=== PATIENT | male | born 1980 | race Two or more races ===

== ENCOUNTER 2017-11-04 16:20 | Emergency (ER) | payer SELFPAY ==
[~2017-11-04] VITALS: Ht 180.3 cm; Wt 124.9 kg
[2017-11-04 16:43] VITALS: BP 134/85
== END 2017-11-04 18:04 | disposition left against medical advice (07) ==
LOC: ER 16:20
DX: R11.2 Nausea with vomiting, unspecified (principal); R19.7 Diarrhea, unspecified; M79.1 Myalgia; Z53.21 Procedure and treatment not carried out due to patient leaving prior to being seen by health care provider

== ENCOUNTER 2019-06-18 12:53 | Inpatient (IN) | payer MEDICAID ==
[~2019-06-18] VITALS: Ht 175.3 cm; Wt 124.3 kg
[2019-06-18 13:55] LABS: Basophils # (auto) 0.1 uL; Basophils % (auto) 0.7 % (0.0-2.0); Eosinophils # (auto) 0.3 uL; Eosinophils % (auto) 3.5 % (0.0-7.0); Lymphocytes # (auto) 2.6 uL; Lymphocytes % (auto) 30.8 % (10.0-50.0); Mean Corpuscular Hemoglobin 31.6 pg (28.0-32.0); Mean Corpuscular Volume 92.8 fL (80.0-100.0); Monocytes # (auto) 1.3 uL; Neutrophils # (auto) 4.3 uL; Platelet Count (auto) 211 10^3/uL (140-450); Red Blood Cells 5.06 10^6/uL (4.5-5.90); Red Cell Distribution Width 12.9 % (11.8-14.3); White Blood Cell 8.5 10^3/uL (4.4-10.8)
[2019-06-18 14:17] LABS: Albumin 3.5 g/dL (3.4-5.0); Anion Gap 7 (5-15); Blood Urea Nitrogen 7 mg/dL (7-18); Calcium 8.7 mg/dL (8.5-10.1); Carbon Dioxide 28 mmol/L (21-32); Chloride 102 mmol/L (98-107); Glucose 103 mg/dL (74-106); Sodium 137 mmol/L (136-145)
[2019-06-18 14:22] LABS: Alanine Aminotransferase 37 U/L (16-61); Alkaline Phosphatase 73 U/L (45-117); Aspartate Aminotransferase 21 U/L (15-37); BUN/Creatinine Ratio 7.6; Bilirubin, Total 0.9 mg/dL (0.2-1.0); GFR African American 118 mL/min; GFR Non-African American 97 mL/min
[2019-06-18] MEDS ORDERED: ASPirin 81 mg TAB PO ONE (16:00)
[2019-06-18] MEDS ORDERED: NITROGLYCERIN 0.4 MG SL TAB SL ONE (17:15)
[2019-06-18] MEDS ORDERED: TEMAZEPAM 15 MG CAP PO PRN (21:15)
[2019-06-18] MEDS ORDERED: ONDANSETRON HCL 4 MG/2 ML VIAL IV PRN (21:15)
[2019-06-18] MEDS ORDERED: cloNIDine HCL 0.1 MG TAB PO PRN (21:15)
[2019-06-18] MEDS ORDERED: ACETAMINOPHEN 325 MG TAB PO PRN (21:15)
[2019-06-18 21:27] LABS: Cholesterol 155 mg/dL (< 200); Triglycerides 155 mg/dL (< 150)
[2019-06-18 21:29] LABS: HDL Cholesterol 38 mg/dL (40-59); LDL Cholesterol 103 mg/dL (< 100)
[2019-06-18] MEDS ORDERED: MORPHINE SULF INJ 2 MG/ML SYRINGE 1ML IV PRN (22:00)
[2019-06-18] MEDS ORDERED: NITROGLYCERIN 0.4 MG SL TAB SL PRN (22:00)
[2019-06-18] MEDS: FAMOTIDINE 20 MG TAB PO SCH (22:03)
[2019-06-18] MEDS: ATORVASTATIN 20 MG TAB PO SCH (22:03)
--- NOTE | 2019-06-19 00:10 | NUR ---
Telemetry admit from [facility] admitted to Telemetry unit. Patient oriented to Camille Alanis, RN primary RN, unit, room, bed, and unit policies regarding patient care and visiting hours. Patient now on continuous telemetry monitoring, tele box #[id number] and telemetry reading on arrival to unit is NSR. Patient placed on bedside oxygen, weighed by bedscale and encouraged to call if they need something. All questions and concerns addressed, patient verbalized understanding. Note: patient a/ox4. room air, even and unlabored respirations, no s/s of distress. IV intact and patent. Denies CP. Ambulatory with steady gait. No s/s of distress. Will continue care.
[2019-06-19 03:12] VITALS: BP 124/78
[2019-06-19 05:26] VITALS: BP 131/85
[2019-06-19 06:12] LABS: Calcium 8.3 mg/dL (8.5-10.1); Potassium 3.9 mmol/L (3.5-5.1)
--- NOTE | 2019-06-19 06:24 | NUR ---
Home Medications patient does not remember home medications, reports family will bring in list.
--- NOTE | 2019-06-19 06:59 | NUR ---
Closing Note patient resting in bed with even and unlabored respirations, no s/s of distress. Endorsed care to day shift RN.
[2019-06-19 09:00] VITALS: BP 124/74
[2019-06-19] MEDS: ASPirin 81 mg TAB PO SCH (09:05)
[2019-06-19] MEDS: FAMOTIDINE 20 MG TAB PO SCH ×2 (09:05→22:25)
[2019-06-19] MEDS: METOPROLOL TARTRATE 25 MG TAB PO SCH ×2 (09:05→22:25)
--- NOTE | 2019-06-19 12:45 | NUR ---
pt seen by Dr. Carrizales received order for cardiolite stress test.
[2019-06-19 17:00] VITALS: BP 151/79
--- NOTE | 2019-06-19 19:45 | NUR ---
open note assumed care of pt. upon entering room pt awake alert and oriented x4. pt family at bedside. pt on room air no distress noted or expressed. pt denies any pain. pt updated on plan of care, no questions at this time. pt aware of stress test in the AM and will be NPO after midnight. pt bed locked, low and 2x rails up. call light in reach, will round q1hr and prn.
[2019-06-19 22:00] VITALS: BP 122/74
[2019-06-19] MEDS: ATORVASTATIN 20 MG TAB PO SCH (22:25)
[2019-06-20] VITALS (7 sets, daily range): BP systolic 111–123; BP diastolic 68–79
[2019-06-20 07:02] LABS: Basophils # (auto) 0.1 uL; Basophils % (auto) 0.6 % (0.0-2.0); Eosinophils # (auto) 0.5 uL; Eosinophils % (auto) 5.2 % (0.0-7.0); Hematocrit 45.2 % (41.0-53.0); Hemoglobin 15.6 g/dL (13.5-17.5); Lymphocytes # (auto) 3.4 uL; Mean Corpuscular Hemoglobin 32.3 pg (28.0-32.0); Mean Corpuscular Hgb Conc. 34.5 g/dL (32.0-36.0); Mean Corpuscular Volume 93.5 fL (80.0-100.0); Monocytes # (auto) 0.9 uL; Monocytes % (auto) 10.1 % (0.0-12.0); Neutrophils # (auto) 4.2 uL; Neutrophils % (auto) 46.1 % (37.0-80.0); Nucleated Red Blood Cells % 0.1 %; Platelet Count (auto) 210 10^3/uL (140-450); Red Blood Cells 4.83 10^6/uL (4.5-5.90); Red Cell Distribution Width 12.6 % (11.8-14.3)
--- NOTE | 2019-06-20 07:05 | NUR ---
Opening Shift Note Assumed care of patient, awake and alert. No S/S of distress/SOB or pain. Instructed on POC and to call for assist PRN, will continue to monitor for changes Q1hr and PRN. Bed set in lowest, locked position with side rails up x2 and call light is within reach.
[2019-06-20 07:11] LABS: BUN/Creatinine Ratio 13.9; Calcium 8.6 mg/dL (8.5-10.1); Magnesium 2.4 mg/dL (1.6-2.6); Potassium 4.3 mmol/L (3.5-5.1)
[2019-06-20] MEDS ORDERED: ADENOSINE 105 MG in GIVE UN-DILUTED 0 ML IV STA (08:15)
--- NOTE | 2019-06-20 09:15 | NUR ---
PT IS OFF UNIT Pt taken for stress test via wheelchair. No distress/pain noted.
--- NOTE | 2019-06-20 10:27 | NUR ---
pt seen by Dr. Nam per Dr. Nam if stress test result is negative and Dr. Carrizales clears the pt, he can go home.
--- NOTE | 2019-06-20 10:28 | NUR ---
PT returned to unit Pt. returned to bed from stress test. Bed is in lowest locked position with side rails up x2 and call light within reach. No distress/pain noted. Will continue to monitor.
[2019-06-20] MEDS: FAMOTIDINE 20 MG TAB PO SCH ×2 (10:38→22:04)
[2019-06-20] MEDS: ASPirin 81 mg TAB PO SCH (10:38)
[2019-06-20] MEDS: METOPROLOL TARTRATE 25 MG TAB PO SCH ×2 (10:39→22:04)
[2019-06-20] MEDS ORDERED: LISI-646 PO (10:47)
--- NOTE | 2019-06-20 15:00 | NUR ---
SPOKE WITH DR. DENSON, HE SAID HE WILL READ THE STRESS TEST RESULT AND WILL CALL BACK IF PT IS CLEARED FOR DISCHARGE.
--- NOTE | 2019-06-20 17:12 | NUR ---
PAGED DR. DENSON TO FOLLOW UP STRESS TEST RESULT AND IF PT IS CLEARED FOR DISCHARGE, WAITING FOR CALL BACK.
--- NOTE | 2019-06-20 17:20 | NUR ---
DR. DENSON CALLED, HE SAID STRESS TEST IS BORDERLINE POSITIVE AND DR. MALAGON WILL READ THE OFFICIAL RESULT. DR. DENSON ORDERED TO HOLD DISCHARGE AND INFORM THE PT, HE WILL DISCUSS THE RESULT WITH DR. MALAGON.
--- NOTE | 2019-06-20 18:12 | NUR ---
PAGED HOSPITALIST, PT HAS BEEN COUGHING WHITE PHLEGM AND ASKING IF HE CAN HAVE COUGH MEDICINE, WAITING FOR CALL BACK.
--- NOTE | 2019-06-20 18:30 | NUR ---
DR. STEVENS CALLED BACK RECEIVED ORDER FOR CATHY READ BACK AND VERIFIED.
--- NOTE | 2019-06-20 18:50 | NUR ---
DR. DENSON AT BEDSIDE STRESS TEST RESULT EXPLAINED TO THE PT AND POSSIBLE PLAN FOR [facility] ON SUNDAY, PT VERBALIZED UNDERSTANDING.
[2019-06-20] MEDS: guaiFENesin 200 MG/10 ML UD PO PRN (21:05)
[2019-06-20] MEDS: ATORVASTATIN 20 MG TAB PO SCH (22:03)
[2019-06-21] MEDS: guaiFENesin 200 MG/10 ML UD PO PRN ×3 (04:00→21:39)
[2019-06-21 05:00] VITALS: BP 117/66
[2019-06-21 08:28] VITALS: BP 107/67
[2019-06-21 09:00] VITALS: BP 107/67
[2019-06-21] MEDS: METOPROLOL TARTRATE 25 MG TAB PO SCH ×2 (09:39→21:38)
[2019-06-21] MEDS: ASPirin 81 mg TAB PO SCH (09:39)
[2019-06-21] MEDS: FAMOTIDINE 20 MG TAB PO SCH (09:39)
--- NOTE | 2019-06-21 10:22 | NUR ---
PATIENT AWAITING CONSULT FROM DR MALAGON IN REGARDS TO A POSSIBLE LEFT HEART CATH ON SUNDAY
[2019-06-21 13:00] VITALS: BP 119/76
[2019-06-21] MEDS ORDERED: PANTOPRAZOLE 40 MG TAB PO ONE (14:00)
[2019-06-21 17:00] VITALS: BP 125/76
--- NOTE | 2019-06-21 19:45 | NUR ---
open note assumed care of pt. upon entering room pt awake and alert. pt on room air no distress noted or expressed. pt denied any pain. pt updated on plan of care. pt has no questions at this time. pt bed locked, low and 2x rails up. call light in reach, will round q1hr and prn.
[2019-06-21] MEDS: ATORVASTATIN 20 MG TAB PO SCH (21:38)
[2019-06-21] MEDS: PANTOPRAZOLE 40 MG TAB PO SCH (21:39)
[2019-06-21 21:48] VITALS: BP 122/68
[2019-06-22 05:38] VITALS: BP 115/77
[2019-06-22 08:00] VITALS: BP 114/78
[2019-06-22 09:00] VITALS: BP 114/78
[2019-06-22] MEDS: ASPirin 81 mg TAB PO SCH (09:21)
[2019-06-22] MEDS: METOPROLOL TARTRATE 25 MG TAB PO SCH ×2 (09:22→21:43)
[2019-06-22] MEDS: PANTOPRAZOLE 40 MG TAB PO SCH ×2 (09:23→21:42)
--- NOTE | 2019-06-22 11:39 | NUR ---
Nutrition Assessment Notes please see attached link for complete assessment Est. Needs ABW 97 [id number] kcal (17-20 kcal/kgBW), 97-106 gms pro (1.0-1.1 gms/kgBW). Will continue to monitor pertinent labs and reassess nutrient need prn Addendum: 06/22/19 at [address] Amended: Links added.
[2019-06-22 12:57] VITALS: BP 176/97
[2019-06-22 17:00] VITALS: BP 122/78
--- NOTE | 2019-06-22 19:06 | NUR ---
RECEIVED PATIENT FROM DAY SHIFT RN. PATIENT RESTING IN BED. NO S/S OF DISTRESS NOTED. DENIED CHEST PAIN AND ANY CHEST DISCOMFORT FOR NOW. SUGGESTED PATIENT NPO AFTER MIDNIGHT FOR POSSIBLE PROCEDURE TOMORROW. POC INSTRUCTED AND ENCOURAGED PATIENT TO CALL FOR BOARD MACHINE SET UP OPERATOR IF NEEDED. BED IN LOWEST POSITION WITH SIDE RAILS UP X 2. CALL ESCOTO WITHIN REACH. ALARM ON. CONTINUE TO MONITOR FOR CHANGES Q1H AND PRN.
--- NOTE | 2019-06-22 19:20 | NUR ---
RECEIVED PATIENT FROM DAY SHIFT RN. PATIENT RESTING IN BED. NO S/S OF DISTRESS NOTED. FAMILY AT BEDSIDE. DENIED ANY PAIN AND DIZZINESS FOR NOW. RIGHT SIDE FACIAL DROPPING NOTED. SPEECH OKAY NOW. POC INSTRUCTED AND ENCOURAGED PATIENT TO CALL FOR COOLER SUPERVISOR IF NEEDED. BED IN LOWEST POSITION WITH SIDE RAILS UP X 2. CALL ESCOTO WITHIN REACH. ALARM ON. CONTINUE TO MONITOR FOR CHANGES Q1H AND PRN. Addendum: 06/22/19 at 2011 by Jeremias Garnett RN WRONG NOTES
[2019-06-22] MEDS: ATORVASTATIN 20 MG TAB PO SCH (21:42)
--- NOTE | 2019-06-22 21:48 | NUR ---
MD DENSON CALLED AND ORDERED FOR LHC TOMORROW WITH FARSHAD COREAS AFTER MIDNIGHT. WILL CARRY IT OUT. CONTINUE TO MONITOR.
[2019-06-22 22:08] VITALS: BP 133/78
--- NOTE | 2019-06-23 00:45 | NUR ---
REINFORCED NPO FROM NOW ON. FOOD AND DRINK REMOVED FROM BEDSIDE. PATIENT VERBALIZED UNDERSTANDING. CONTINUE CARE.
--- NOTE | 2019-06-23 03:21 | NUR ---
PATIENT SLEEPING. NO S/S OF DISTRESS NOTED. CONTINUE CARE.
--- NOTE | 2019-06-23 04:50 | NUR ---
TOTAL BED LINEN AND PATIENT GOWN CHANGED. PATIENT TOLERATED WELL. CONTINUE CARE.
[2019-06-23 05:24] VITALS: BP 119/73
--- NOTE | 2019-06-23 06:21 | NUR ---
PATIENT UNDERSTOOD NPO NOW. CONTINUE CARE.
[2019-06-23 06:22] LABS: INR 1.02 (0.9-1.15); Partial Thromboplastin Time 27.8 sec (23.64-32.05)
[2019-06-23 06:23] LABS: Basophils # (auto) 0 uL; Basophils % (auto) 0.4 % (0.0-2.0); Eosinophils # (auto) 0.7 uL; Eosinophils % (auto) 5.5 % (0.0-7.0); Hematocrit 44.1 % (41.0-53.0); Hemoglobin 15.3 g/dL (13.5-17.5); Lymphocytes # (auto) 4.4 uL; Lymphocytes % (auto) 35.4 % (10.0-50.0); Mean Corpuscular Hemoglobin 32.5 pg (28.0-32.0); Mean Corpuscular Hgb Conc. 34.7 g/dL (32.0-36.0); Mean Corpuscular Volume 93.6 fL (80.0-100.0); Monocytes # (auto) 0.8 uL; Monocytes % (auto) 6.4 % (0.0-12.0); Neutrophils # (auto) 6.6 uL; Neutrophils % (auto) 52.3 % (37.0-80.0); Platelet Count (auto) 256 10^3/uL (140-450); Red Blood Cells 4.71 10^6/uL (4.5-5.90); Red Cell Distribution Width 12.6 % (11.8-14.3); White Blood Cell 12.6 10^3/uL (4.4-10.8)
[2019-06-23 08:00] VITALS: BP 120/74
[2019-06-23 08:04] LABS: Albumin 3.1 g/dL (3.4-5.0); BUN/Creatinine Ratio 12.1; Bilirubin, Total 0.7 mg/dL (0.2-1.0); Calcium 8.4 mg/dL (8.5-10.1); Potassium 4.2 mmol/L (3.5-5.1); Total Protein 7.2 g/dL (6.4-8.2)
[2019-06-23 08:56] VITALS: BP 120/74
[2019-06-23 09:06] VITALS: BP 120/74
[2019-06-23] MEDS: METOPROLOL TARTRATE 25 MG TAB PO SCH (09:22)
[2019-06-23] MEDS: ASPirin 81 mg TAB PO SCH (09:23)
[2019-06-23] MEDS: PANTOPRAZOLE 40 MG TAB PO SCH (09:23)
[2019-06-23] MEDS ORDERED: PANT40TA2 PO (11:08)
[2019-06-23] MEDS ORDERED: MET25T PO (11:08)
[2019-06-23 13:11] VITALS: BP 117/68
[2019-06-23] MEDS ORDERED: IOHEXOL 350 MG/ML 100ML IJ ONE (13:28)
[2019-06-23] MEDS ORDERED: LIDOCAINE 2%HCL (LOCAL ANESTH.) INJ 20ML MDV ONE (13:28)
[2019-06-23] MEDS ORDERED: MIDAZOLAM HCL 1MG/1ML-2 ML VIAL ONE (14:01)
[2019-06-23] MEDS ORDERED: fentaNYL CITRATE 100 MCG/2 ML VL ONE (14:01)
[2019-06-23] MEDS ORDERED: ANGIOMAX 250 MG VIAL IV ONE (14:01)
[2019-06-23] MEDS ORDERED: SODIUM CHL 0.9% 0 ML ONE (14:02)
[2019-06-23 17:18] VITALS: BP 120/69
--- NOTE | 2019-06-23 18:42 | NUR ---
PATIENT DISCHARGED HOME WITH FAMILY. ALL IV ACCESS DISCONTINUED. TELEMETRY DISCONTINUED AND RETURNED TO TELEMETRY DEPARTMENT. ALL DISCHARGE INSTRUCTIONS GIVEN. ALL DISCHARGE PAPERWORK SIGNED
--- NOTE | 2019-06-24 10:06 | NUR ---
assessment Patient discharged prior to being assessed Addendum: 06/24/19 at 1006 by Corinne DENG Amended: Links added.
== END 2019-06-23 18:42 | disposition home or self-care (01) | DRG 243 ==
LOC: ER 12:55 → TELE 12:56 → TELE-WESTW 12:57
PROVIDERS: ADMIT Nurse Practitioner; ATTEND Internal Medicine
PROC: 4A023N7 Measurement of Cardiac Sampling and Pressure, Left Heart, Percutaneous Approach (ICD-10-PCS; principal; 2019-06-23)
PROC: B2111ZZ Fluoroscopy of Multiple Coronary Arteries using Low Osmolar Contrast (ICD-10-PCS; 2019-06-23)
PROC: B2151ZZ Fluoroscopy of Left Heart using Low Osmolar Contrast (ICD-10-PCS; 2019-06-23)
DX: K21.9 Gastro-esophageal reflux disease without esophagitis (principal); E66.01 Morbid (severe) obesity due to excess calories; E78.5 Hyperlipidemia, unspecified; I10 Essential (primary) hypertension; G47.30 Sleep apnea, unspecified; F17.210 Nicotine dependence, cigarettes, uncomplicated; Z68.41 Body mass index [BMI] 40.0-44.9, adult; Z91.19 Patient's noncompliance with other medical treatment and regimen; Z71.6 Tobacco abuse counseling
CPT/HCPCS: 36415; 71046; 78452; 80048; 80053; 80061; 83735; 84484; 85025; 85610; 85730; 86850; 86900; 86901; 93005; 93017; 93306; 93458; 94761; 99152; G0378; J0153; J2250